=== PATIENT | female | born 1970 | race Caucasian/White ===

== ENCOUNTER 2020-11-29 11:57 | Emergency (ER) | payer BC ==
[~2020-11-29] VITALS: Ht 149.9 cm; Wt 48.2 kg
[2020-11-29] MEDS ORDERED: ASPIRIN 81 MG TABLET CHEW PO ONE (12:30)
[2020-11-29] MEDS ORDERED: ASPIRIN 81 MG TABLET CHEW ONE (12:31)
[2020-11-29 12:54] LABS: BASOPHILS % (AUTO) 1 % (0-1); EOSINOPHILS % (AUTO) 1 % (1-7); LYMPHOCYTES % (AUTO) 46 % (22-44); MEAN CORPUSCULAR HEMOGLOBIN 29.1 pg (27.0-34.8); MEAN CORPUSCULAR HGB CONC 33.4 g/dL (32.4-35.8); MEAN PLATELET VOLUME 8.1 fL (7.4-10.4); MONOCYTES % (AUTO) 8 % (2-9); NEUTROPHILS % (AUTO) 43 % (42-75); PLATELET COUNT 339 x10^3/uL (130-400); RED BLOOD COUNT 5.43 x10^6/uL (3.82-5.3); RED CELL DISTRIBUTION WIDTH 14.9 % (9.6-15.2)
[2020-11-29] MEDS ORDERED: PLEASE ENTER ALLERGIES MC SCH (13:00)
[2020-11-29 13:16] LABS: ANION GAP 2 mmol/L (5-15); CALCIUM 9.3 mg/dL (8.5-10.1); CHLORIDE 108 mmol/L (98-107); CREATININE 0.54 mg/dL (0.55-1.02)
[2020-11-29 13:19] LABS: MD SCAN
[2020-11-29 13:22] LABS: TROPONIN I < 0.015 ng/mL (0.000-0.045)
[2020-11-29] MEDS ORDERED: KETOROLAC 30 MG/1 ML ONE (13:52)
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
[2020-11-29] MEDS ORDERED: SODIUM CHLORIDE FLUSH 10ML SYR IVF ONE (14:00)
[2020-11-29] MEDS ORDERED: KETOROLAC 30 MG/1 ML IVPush ONE (14:00)
[2020-11-29 15:20] VITALS: BP 131/88
== END 2020-11-29 16:20 | disposition home or self-care (01) ==
LOC: ED 12:56
DX: R07.89 Other chest pain (principal); F41.1 Generalized anxiety disorder; I45.10 Unspecified right bundle-branch block
CPT/HCPCS: 36415; 71045; 80048; 82040; 82962; 83880; 84484; 85025; 85379; 93005; 96374; 99285; J1885